=== PATIENT | male | born 1990 | race Caucasian/White ===

== ENCOUNTER 2016-11-19 14:32 | Emergency (ER) | payer OTHER ==
[2016-11-19] MEDS ORDERED: traMADol 50 MG TAB As Ordered ONE (16:37)
[2016-11-19] MEDS ORDERED: METHOCARBAMOL 500 MG TAB As Ordered ONE (16:38)
--- NOTE | 2016-11-19 17:47 | REP ---
LUMBAR SPINE, FIVE VIEWS: HISTORY: Back pain. There is no acute fracture or subluxation. The L3-4 and L4-5 intervertebral discs are decreased in height consistent with disc degeneration. The facet joints are normal in appearance. IMPRESSION: Degenerative change as described above. Signed by Ricardo Jaeger MD 11/19/2016 05:51 P
--- NOTE | 2016-11-19 18:05 | EDDOCDS ---
Physician Documentation [facility] Name: Troy Mckinnon Age: 26 yrs Sex: Male : 1990 Arrival Date: 11/19/2016 Time: 14:32 Bed TR8 Private MD: Other - Complete Info On Cds Disposition: 11/19/16 17:49 Discharged to Home/Self Care. Impression: Low back pain. - Condition is Stable. - Discharge Instructions: Back Pain, Adult. - Prescriptions for Ibuprofen 600 mg Oral Tablet - take 1 tablet by ORAL route every 6 hours As needed take with food; 30 tablet. Robaxin 500 mg Oral Tablet - take 2 tablet by ORAL route every 6 hours As needed; 40 tablet. Tramadol 50 mg Oral Tablet - take 1 tablet by ORAL route 4 times per day As needed MDD: 4 tabs; 12 tablet. - Medication Reconciliation, Local Pharmacy Hours form. - Follow up: Everardo Tomas [facility]; When: Tomorrow; Reason: Recheck today's complaints, Continuance of care. - Problem is new. - Symptoms have improved. - Notes: FOLLOW UP WITH [facility] TOMORROW, USE MEDICATIONS INSTRUCTED Historical: - Allergies: lactose (bulk); - Home Meds: 1. none - PMHx: none; - PSHx: none; - Social history: Smoking status: Patient states was never smoker of tobacco. No barriers to communication noted, The patient speaks fluent Bengali. - Family history: Not pertinent. - : The pt / caregiver states he / she is not on anticoagulants. Home medication list is obtained from the patient. - Exposure Risk Screening:: None identified. Vital Signs: 11/19 14:34 BP 135 / 65; Pulse 65; Resp 18 S; Temp 97.7(O); Pulse Ox 97% on R/A; Weight 83.91 kg / gr2 184.99 lbs (R); Height 68 in. (172.72 cm) (R); Pain 7/10; 18:01 BP 137 / 71; Pulse 61; Resp 18; Temp 98.6(TE); Pulse Ox 99% on R/A; Pain 1/10; ms18 14:34 Body Mass Index 28.13 (83.91 kg, 172.72 cm) gr2 MDM: 16:28 Financial registration complete. gb 16:31 traMADol 50 mg PO once ordered. ck7 16:31 Methocarbamol 1 grams PO once ordered. ck7 16:32 Spine. Lumbosacral, Complete Ordered. EDMS 16:45 [facility] Payment Agreement was scanned into [employer] and attached to record. gb Administered Medications: 16:41 Drug: traMADol 50 mg [tramadol 50 mg tablet (1 tabs)] Route: PO; mb9 16:41 Drug: Methocarbamol 1 grams [methocarbamol 500 mg tablet (2 tabs)] Route: PO; mb9 Signatures: Dispatcher [employer] EDMS Stephanie Thomas, Reg Reg gb Roman Carey, RPA-C RPA-Cck7 Gertrudis Henson RN RN ms18 Javi Carrillo RN mb9 The chart was reviewed and I authenticate all verbal orders and agree with the evaluation and treatment provided.Attachments: 16:45 [facility] Payment Agreement gb MTDD
--- NOTE | 2016-11-19 18:05 | EDDOCDS ---
Nurse's Notes [facility] Name: Troy Mckinnon Age: 26 yrs Sex: Male : 1990 Arrival Date: 11/19/2016 Time: 14:32 Bed TR8 Private MD: Other - Complete Info On Cds Diagnosis: Low back pain Presentation: 11/19 14:36 Presenting complaint: Patient states: that he was lifting weights this morning a ms18 injured his back. Pt states he was lifting. Pt sent here from [facility], pt reports that he is supposed to have a MRI, no order present at this time. Acute neurological deficits are not present. Mechanism of Injury: Lifting. Adult Sepsis Screening: The patient does not have new or worsening altered mentation. Patient's respiratory rate is less than 22. Systolic blood pressure is greater than 100. Patient has a qSOFA score of 0- Negative Sepsis Screen. Suicide/Homicide risk assessment- the patient denies having any suicidal and/or homicidal ideations and does not present with any other emotional, behavioral or mental health complaints. 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 Transition of care: patient was received from a primary care office; [facility]. 14:36 Acuity: KEITH Level 4 ms18 14:36 Method Of Arrival: Walkin/Carried/Asstd ms18 Triage Assessment: 14:39 General: Appears in no apparent distress, comfortable, Behavior is appropriate for age, ms18 cooperative. Pain: Pain currently is 6 out of 10 on a pain scale. Pain: Location: lumbar area and low back area. Pt Declines HIV testing. Neurological: Level of Consciousness is awake, alert, obeys commands. Neurological: Oriented to person, place, time. Respiratory: Airway is patent Respiratory effort is even, unlabored. Derm: Skin is pink, warm & dry. Musculoskeletal: Range of motion intact in all extremities. No deformity noted. Historical: - Allergies: lactose (bulk); - Home Meds: 1. none - PMHx: none; - PSHx: none; - Social history: Smoking status: Patient states was never smoker of tobacco. No barriers to communication noted, The patient speaks fluent Romanian. - Family history: Not pertinent. - : The pt / caregiver states he / she is not on anticoagulants. Home medication list is obtained from the patient. - Exposure Risk Screening:: None identified. Screenin:01 Screening information is obtained from the patient. Fall risk: No risks identified. ms18 Assistance ADL's: requires no assistance with activities of daily living. Abuse/DV Screen: The patient / caregiver reports he/she is: not in a situation that causes fear, pain or injury. Nutritional screening: No deficits noted. Advance Directives: There is no living will. home support is adequate. Assessment: 18:01 General: Appears in no apparent distress, comfortable, Behavior is appropriate for age, ms18 cooperative, pleasant. Pain: Location: lumbar area Pain currently is 1 out of 10 on a pain scale. Neurological: Level of Consciousness is awake, alert, obeys commands, Oriented to person, place, time. Respiratory: Airway is patent Respiratory effort is even, unlabored. Derm: Skin is pink, warm & dry. normal. Musculoskeletal: Range of motion intact in all extremities. No deformity noted. Vital Signs: 14:34 BP 135 / 65; Pulse 65; Resp 18 S; Temp 97.7(O); Pulse Ox 97% on R/A; Weight 83.91 kg gr2 (R); Height 68 in. (172.72 cm) (R); Pain 7/10; 18:01 BP 137 / 71; Pulse 61; Resp 18; Temp 98.6(TE); Pulse Ox 99% on R/A; Pain 1/10; ms18 14:34 Body Mass Index 28.13 (83.91 kg, 172.72 cm) gr2 Vitals: 14:34 Log In Time: November 19, 2016 at 14:34. gr2 ED Course: 14:34 Patient visited by Sydni Abdi. gr2 14:34 Other - Complete Info On Cds is Private Physician. gr2 14:34 Patient moved to Waiting gr2 14:35 Patient visited by Sydni Abdi. gr2 14:35 Patient moved to Pre RCE gr2 14:38 Triage Initiated ms18 15:31 Patient moved to Triage 1 mlb1 16:01 [facility] Carey [facility] ck7 16:01 Félix yBrnes MD is Attending Physician. ck7 16:08 Patient visited by Roman Carey RPA-C. ck7 16:41 Patient name changed from Troy\S\B\S\Mckinnon\S\ to Troy\S\Félix\S\Mckinnon. EDMS 16:41 Patient moved to TR2 mb9 16:43 Patient visited by Roman Carey RPA-C. ck7 16:45 [facility] Payment Agreement was scanned into [employer] and attached to record. gb 17:20 Patient visited by Roman Carey RPA-C. ck7 17:46 Patient moved to PR1 / 25 ms18 17:49 [facility] ck7 17:55 Patient moved to TR8 ms18 18:01 The patient / caregiver is instructed regarding the plan of care and ED course. Patient ms18 has correct armband on for positive identification. Property sent home with patient. :Personal belongings accompany Pt. 18:01 No IV's were initiated during this patient's visit. No procedures done that require ms18 assistance. Administered Medications: 16:41 Drug: traMADol 50 mg [tramadol 50 mg tablet (1 tabs)] Route: PO; mb9 16:41 Drug: Methocarbamol 1 grams [methocarbamol 500 mg tablet (2 tabs)] Route: PO; mb9 Order Results: There are currently no results for this order. Outcome: 17:49 Discharge ordered by Provider. ck7 18:01 Discharge Assessment: Patient awake, alert and oriented x 3. No cognitive and/or ms18 functional deficits noted. Patient verbalized understanding of disposition instructions. patient administered narcotics - no. The following High Risk Discharge criteria are identified: None. Discharged to home ambulatory. Condition: good Condition: stable Condition: improved. Discharge instructions given to patient, Instructed on discharge instructions, follow up and referral plans. medication usage, no driving heavy equipment, Demonstrated understanding of instructions, medications, Pt was receptive of discharge instructions/ teaching. Prescriptions given X 3. No special radiology studies were completed. 18:03 Patient left the ED. ms18 Signatures: Dispatcher [employer] EDIA Stephanie Thomas, Ricki Reg Javi Herron, RN RN mlb1 Roman Carey RPA-C RPA-Cck7 Sydni Abdi gr2 Gertrudis Henson RN RN ms18 Javi Carrillo,ALEX RN mb9 MTDD
--- NOTE | 2016-11-21 19:05 | EDDOCDS ---
Physician Documentation [facility] Name: Troy Mckinnon Age: 26 yrs Sex: Male : 1990 Arrival Date: 11/19/2016 Time: 14:32 Bed TR8 Private MD: Other - Complete Info On Cds Disposition: 11/19/16 17:49 Discharged to Home/Self Care. Impression: Low back pain. - Condition is Stable. - Discharge Instructions: Back Pain, Adult. - Prescriptions for Ibuprofen 600 mg Oral Tablet - take 1 tablet by ORAL route every 6 hours As needed take with food; 30 tablet. Robaxin 500 mg Oral Tablet - take 2 tablet by ORAL route every 6 hours As needed; 40 tablet. Tramadol 50 mg Oral Tablet - take 1 tablet by ORAL route 4 times per day As needed MDD: 4 tabs; 12 tablet. - Medication Reconciliation, Local Pharmacy Hours form. - Follow up: Everardo Tomas [facility]; When: Tomorrow; Reason: Recheck today's complaints, Continuance of care. - Problem is new. - Symptoms have improved. - Notes: FOLLOW UP WITH [facility] TOMORROW, USE MEDICATIONS INSTRUCTED Historical: - Allergies: lactose (bulk); - Home Meds: 1. none - PMHx: none; - PSHx: none; - Social history: Smoking status: Patient states was never smoker of tobacco. No barriers to communication noted, The patient speaks fluent Greenlandic. - Family history: Not pertinent. - : The pt / caregiver states he / she is not on anticoagulants. Home medication list is obtained from the patient. - Exposure Risk Screening:: None identified. Vital Signs: 11/19 14:34 BP 135 / 65; Pulse 65; Resp 18 S; Temp 97.7(O); Pulse Ox 97% on R/A; Weight 83.91 kg / gr2 184.99 lbs (R); Height 68 in. (172.72 cm) (R); Pain 7/10; 18:01 BP 137 / 71; Pulse 61; Resp 18; Temp 98.6(TE); Pulse Ox 99% on R/A; Pain 1/10; ms18 14:34 Body Mass Index 28.13 (83.91 kg, 172.72 cm) gr2 MDM: 16:28 Financial registration complete. gb 16:31 traMADol 50 mg PO once ordered. ck7 16:31 Methocarbamol 1 grams PO once ordered. ck7 16:32 Spine. Lumbosacral, Complete Ordered. EDMS 16:45 [facility] Payment Agreement was scanned into [employer] and attached to record. gb 11/20 09:42 T-Sheet-- Draft Copy was scanned into [employer] and attached to record. gb Administered Medications: 11/19 16:41 Drug: traMADol 50 mg [tramadol 50 mg tablet (1 tabs)] Route: PO; mb9 16:41 Drug: Methocarbamol 1 grams [methocarbamol 500 mg tablet (2 tabs)] Route: PO; mb9 Signatures: Dispatcher [employer] EDMS Stephanie Thomas, Reg Reg gb Roman Carey, AIDEC RPA-Cck7 Gertrudis Henson RN RN ms18 Javi Carrillo RN mb9 The chart was reviewed and I authenticate all verbal orders and agree with the evaluation and treatment provided.Attachments: 16:45 [facility] Payment Agreement gb 11/20 09:42 T-Sheet-- Draft Copy gb Chart Complete MTDD
--- NOTE | 2016-11-21 19:05 | EDDOCDS ---
Nurse's Notes [facility] Name: Troy Mckinnon Age: 26 yrs Sex: Male : 1990 Arrival Date: 11/19/2016 Time: 14:32 Bed TR8 Private MD: Other - Complete Info On Cds Diagnosis: Low back pain Presentation: 11/19 14:36 Presenting complaint: Patient states: that he was lifting weights this morning a ms18 injured his back. Pt states he was lifting. Pt sent here from [facility], pt reports that he is supposed to have a MRI, no order present at this time. Acute neurological deficits are not present. Mechanism of Injury: Lifting. Adult Sepsis Screening: The patient does not have new or worsening altered mentation. Patient's respiratory rate is less than 22. Systolic blood pressure is greater than 100. Patient has a qSOFA score of 0- Negative Sepsis Screen. Suicide/Homicide risk assessment- the patient denies having any suicidal and/or homicidal ideations and does not present with any other emotional, behavioral or mental health complaints. 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 Transition of care: patient was received from a primary care office; [facility]. 14:36 Acuity: KEITH Level 4 ms18 14:36 Method Of Arrival: Walkin/Carried/Asstd ms18 Triage Assessment: 14:39 General: Appears in no apparent distress, comfortable, Behavior is appropriate for age, ms18 cooperative. Pain: Pain currently is 6 out of 10 on a pain scale. Pain: Location: lumbar area and low back area. Pt Declines HIV testing. Neurological: Level of Consciousness is awake, alert, obeys commands. Neurological: Oriented to person, place, time. Respiratory: Airway is patent Respiratory effort is even, unlabored. Derm: Skin is pink, warm & dry. Musculoskeletal: Range of motion intact in all extremities. No deformity noted. Historical: - Allergies: lactose (bulk); - Home Meds: 1. none - PMHx: none; - PSHx: none; - Social history: Smoking status: Patient states was never smoker of tobacco. No barriers to communication noted, The patient speaks fluent Vietnamese. - Family history: Not pertinent. - : The pt / caregiver states he / she is not on anticoagulants. Home medication list is obtained from the patient. - Exposure Risk Screening:: None identified. Screenin:01 Screening information is obtained from the patient. Fall risk: No risks identified. ms18 Assistance ADL's: requires no assistance with activities of daily living. Abuse/DV Screen: The patient / caregiver reports he/she is: not in a situation that causes fear, pain or injury. Nutritional screening: No deficits noted. Advance Directives: There is no living will. home support is adequate. Assessment: 18:01 General: Appears in no apparent distress, comfortable, Behavior is appropriate for age, ms18 cooperative, pleasant. Pain: Location: lumbar area Pain currently is 1 out of 10 on a pain scale. Neurological: Level of Consciousness is awake, alert, obeys commands, Oriented to person, place, time. Respiratory: Airway is patent Respiratory effort is even, unlabored. Derm: Skin is pink, warm & dry. normal. Musculoskeletal: Range of motion intact in all extremities. No deformity noted. Vital Signs: 14:34 BP 135 / 65; Pulse 65; Resp 18 S; Temp 97.7(O); Pulse Ox 97% on R/A; Weight 83.91 kg gr2 (R); Height 68 in. (172.72 cm) (R); Pain 7/10; 18:01 BP 137 / 71; Pulse 61; Resp 18; Temp 98.6(TE); Pulse Ox 99% on R/A; Pain 1/10; ms18 14:34 Body Mass Index 28.13 (83.91 kg, 172.72 cm) gr2 Vitals: 14:34 Log In Time: November 19, 2016 at 14:34. gr2 ED Course: 14:34 Patient visited by Sydni Abdi. gr2 14:34 Other - Complete Info On Cds is Private Physician. gr2 14:34 Patient moved to Waiting gr2 14:35 Patient visited by Sydni Abdi. gr2 14:35 Patient moved to Pre RCE gr2 14:38 Triage Initiated ms18 15:31 Patient moved to Triage 1 mlb1 16:01 oRman Carey [facility] ck7 16:01 Félix Byrnes MD is Attending Physician. ck7 16:08 Patient visited by Roman Carey RPA-C. ck7 16:41 Patient name changed from Troy\S\B\S\Mckinnon\S\ to Troy\S\Félix\S\Mckinnon. EDMS 16:41 Patient moved to TR2 mb9 16:43 Patient visited by Roman Carey RPA-C. ck7 16:45 [facility] Payment Agreement was scanned into [employer] and attached to record. gb 17:20 Patient visited by Roman Carey RPA-C. ck7 17:46 Patient moved to PR1 / 25 ms18 17:49 Everardo Tomas [facility] is Referral Physician. ck7 17:55 Patient moved to TR8 ms18 18:01 The patient / caregiver is instructed regarding the plan of care and ED course. Patient ms18 has correct armband on for positive identification. Property sent home with patient. :Personal belongings accompany Pt. 18:01 No IV's were initiated during this patient's visit. No procedures done that require ms18 assistance. 18:16 Spine. Lumbosacral, Complete Returned. EDMS 11/20 09:42 T-Sheet-- Draft Copy was scanned into [employer] and attached to record. gb Administered Medications: 11/19 16:41 Drug: traMADol 50 mg [tramadol 50 mg tablet (1 tabs)] Route: PO; mb9 16:41 Drug: Methocarbamol 1 grams [methocarbamol 500 mg tablet (2 tabs)] Route: PO; mb9 Order Results: Radiology Order: Spine. Lumbosacral, Complete Test: Spine. Lumbosacral, Complete REASON FOR EXAMINATION: low back pain; LUMBAR SPINE, FIVE VIEWS:; ; HISTORY: Back pain.; ; There is no acute fracture or subluxation. The L3-4 and L4-5 intervertebral discs; are decreased in height consistent with disc degeneration. The facet joints are; normal in appearance.; ; IMPRESSION:; ; Degenerative change as described above.; ; ; Signed by; Ricardo Jaeger MD 11/19/2016 05:51 P; Outcome: 17:49 Discharge ordered by Provider. ck7 18:01 Discharge Assessment: Patient awake, alert and oriented x 3. No cognitive and/or ms18 functional deficits noted. Patient verbalized understanding of disposition instructions. patient administered narcotics - no. The following High Risk Discharge criteria are identified: None. Discharged to home ambulatory. Condition: good Condition: stable Condition: improved. Discharge instructions given to patient, Instructed on discharge instructions, follow up and referral plans. medication usage, no driving heavy equipment, Demonstrated understanding of instructions, medications, Pt was receptive of discharge instructions/ teaching. Prescriptions given X 3. No special radiology studies were completed. 18:03 Patient left the ED. ms18 Signatures: Dispatcher [employer] EDMS Stephanie Thomas, Reg Reg gb Javi Herron RN RN mlb1 Roman Carey, RPA-C RPA-Cck7 Sydni Abdi gr2 Gertrudis Henson,RN RN ms18 Javi CarrilloRN RN mb9 Chart Complete MTDD
--- NOTE | 2016-11-21 19:05 | EDDOCDS ---
Physician Documentation [facility] Name: Troy Mckinnon Age: 26 yrs Sex: Male : 1990 Arrival Date: 11/19/2016 Time: 14:32 Bed TR8 Private MD: Other - Complete Info On Cds Disposition: 11/19/16 17:49 Discharged to Home/Self Care. Impression: Low back pain. - Condition is Stable. - Discharge Instructions: Back Pain, Adult. - Prescriptions for Ibuprofen 600 mg Oral Tablet - take 1 tablet by ORAL route every 6 hours As needed take with food; 30 tablet. Robaxin 500 mg Oral Tablet - take 2 tablet by ORAL route every 6 hours As needed; 40 tablet. Tramadol 50 mg Oral Tablet - take 1 tablet by ORAL route 4 times per day As needed MDD: 4 tabs; 12 tablet. - Medication Reconciliation, Local Pharmacy Hours form. - Follow up: Everardo Tomas [facility]; When: Tomorrow; Reason: Recheck today's complaints, Continuance of care. - Problem is new. - Symptoms have improved. - Notes: FOLLOW UP WITH [facility] TOMORROW, USE MEDICATIONS INSTRUCTED Historical: - Allergies: lactose (bulk); - Home Meds: 1. none - PMHx: none; - PSHx: none; - Social history: Smoking status: Patient states was never smoker of tobacco. No barriers to communication noted, The patient speaks fluent Polish. - Family history: Not pertinent. - : The pt / caregiver states he / she is not on anticoagulants. Home medication list is obtained from the patient. - Exposure Risk Screening:: None identified. Vital Signs: 11/19 14:34 BP 135 / 65; Pulse 65; Resp 18 S; Temp 97.7(O); Pulse Ox 97% on R/A; Weight 83.91 kg / gr2 184.99 lbs (R); Height 68 in. (172.72 cm) (R); Pain 7/10; 18:01 BP 137 / 71; Pulse 61; Resp 18; Temp 98.6(TE); Pulse Ox 99% on R/A; Pain 1/10; ms18 14:34 Body Mass Index 28.13 (83.91 kg, 172.72 cm) gr2 MDM: 16:28 Financial registration complete. gb 16:31 traMADol 50 mg PO once ordered. ck7 16:31 Methocarbamol 1 grams PO once ordered. ck7 16:32 Spine. Lumbosacral, Complete Ordered. EDMS 16:45 [facility] Payment Agreement was scanned into [employer] and attached to record. gb 11/20 09:42 T-Sheet-- Draft Copy was scanned into [employer] and attached to record. gb Administered Medications: 11/19 16:41 Drug: traMADol 50 mg [tramadol 50 mg tablet (1 tabs)] Route: PO; mb9 16:41 Drug: Methocarbamol 1 grams [methocarbamol 500 mg tablet (2 tabs)] Route: PO; mb9 Signatures: Dispatcher [employer] EDMS Stephanie Thomas, Reg Reg gb Roman Carey, AIDEC RPA-Cck7 Gertrudis Henson RN RN ms18 Javi Carrillo RN mb9 The chart was reviewed and I authenticate all verbal orders and agree with the evaluation and treatment provided.Attachments: 16:45 [facility] Payment Agreement gb 11/20 09:42 T-Sheet-- Draft Copy gb Chart Complete MTDD
== END 2016-11-19 18:03 | disposition home or self-care (01) ==
LOC: M ED 14:32
DX: M54.5 Low back pain (principal); Z91.011 Allergy to milk products

== ENCOUNTER → 2016-11-28 | Outpatient (REF) | payer OTHER ==
[2016-11-28 15:00] LABS: NON PROGRESSIVE MOTILITY (c) 11 %; PROGRESSIVE MOTILITY (a) 49 % (>=32); TOTAL MOTILITY 60 % (>=40)
[2016-11-28 15:01] LABS: % NORMAL FORMS 14 % (>=4); IMMOTILITY 40 %; SPERM# 52.3 M/Ejac (33-46); TOTAL FUNCTIONAL 7.8 M/Ejac.; TOTAL PROGRESSIVE SPERM 25.6 M/Ejac.
== END ==
LOC: M LAB REF 13:35
DX: Z31.41 Encounter for fertility testing (principal)

== ENCOUNTER → 2016-12-16 | Outpatient (CLI) | payer OTHER ==
[2016-12-16 13:38] LABS: FOLLICLE STIMULATING HORMONE 1.9 mIU/mL (1.4-18.1); LUTEINIZING HORMONE 3.1 mIU/mL (1.5-9.3)
== END ==
LOC: M SMT 08:59
PROVIDERS: ATTEND Nurse Practitioner Women's Health
DX: N46.9 Male infertility, unspecified (principal)
CPT/HCPCS: 36415; 83001; 83002; 84402; 84403; G0463